=== PATIENT | female | born 1935 | race Caucasian/White ===

== ENCOUNTER 2017-04-16 05:52 | Outpatient (CLI) | payer MEDICARE, OTHER ==
[~2017-04-16] VITALS: Ht 152.4 cm; Wt 72.1 kg
[~2017-04-16 05:52] MED LIST: ASP81TEC PO; CEPH500C PO; D50KC PO; EZET10TA5 PO; FAMO40TA6 PO; FRS325T PO; FRSM20T PO; FURO40TA4 PO; HYDR-623 PO; HYDR1TAB66 PO; LISI40TA PO; LVT.1T PO; OMG1KC PO; PRAV80TA2 PO; ROPI0.5T2 PO; ROPI2TAB28 PO; SPRN25T GT; SRTR100T PO; [UNRECOGNIZED DRUG - OTHER] PO
[2017-04-16] MEDS ORDERED: FAMO40TA6 PO (12:01)
[2017-04-16] MEDS ORDERED: FURO40TA4 PO (12:01)
[2017-04-16] MEDS ORDERED: HYDR-3820 PO (12:01)
[2017-04-16] MEDS ORDERED: LISI40TA PO (12:01)
[2017-04-16] MEDS ORDERED: LEVO125T6 PO (12:01)
[2017-04-16] MEDS ORDERED: SERT100T8 PO (12:01)
[2017-04-16] MEDS ORDERED: ALLO100T PO (12:02)
[2017-04-16] MEDS ORDERED: AMLO5TAB2 PO (12:02)
[2017-04-16] MEDS ORDERED: ATOR40TA70 PO (12:02)
== END 2017-04-16 12:13 ==
LOC: PREOP 05:52
PROVIDERS: ATTEND Otolaryngology Otolaryngology/Facial Plastic Surgery
DX: Z01.818 Encounter for other preprocedural examination (principal); L98.9 Disorder of the skin and subcutaneous tissue, unspecified

== ENCOUNTER 2017-04-18 05:50 | Day surgery (SDC) | payer MEDICARE, OTHER ==
[~2017-04-18] VITALS: Ht 152.4 cm; Wt 72.1 kg
[~2017-04-18 05:50] MED LIST changes: +ALLO100T PO; +AMLO5TAB2 PO; +ATOR40TA70 PO; +HYDR-3820 PO; +LEVO125T6 PO; +SERT100T8 PO
--- NOTE | 2017-04-18 06:45 | Progress Note-Pre Operative ---
Pre-Operative Progress Note H&P Reviewed The H&P was reviewed, patient examined and no changes noted. Date Seen by Provider: Apr 18, 2017 Time Seen by Provider: 06:30 Date H&P Reviewed: Apr 18, 2017 Time H&P Reviewed: 06:30 Pre-Operative Diagnosis: Left Medial Cheek Lesion JIMBO RICH MD Apr 18, 2017 6:45 am
[2017-04-18 06:51] LABS: BASOPHILS % (AUTO) 0 % (0-10); EOSINOPHILS # (AUTO) 0.3 10^3/uL (0.0-0.3); EOSINOPHILS % (AUTO) 4 % (0-10); HEMATOCRIT 32 % (35-52); HEMOGLOBIN 10.7 G/DL (11.5-16.0); LYMPHOCYTES % (AUTO) 12 % (12-44); MEAN CORPUSCULAR HEMOGLOBIN 30 PG (25-34); MEAN CORPUSCULAR HGB CONC 34 G/DL (32-36); MEAN CORPUSCULAR VOLUME 89 FL (80-99); MEAN PLATELET VOLUME 10.3 FL (7.4-10.4); MONOCYTES # (AUTO) 0.6 X 10^3 (0.0-1.0); MONOCYTES % (AUTO) 7 % (0-12); NEUTROPHILS # (AUTO) 5.8 X 10^3 (1.8-7.8); NEUTROPHILS % (AUTO) 76 % (42-75); PLATELET COUNT 183 10^3/uL (130-400); RED BLOOD COUNT 3.58 10^6/uL (4.35-5.85); RED CELL DISTRIBUTION WIDTH 15.2 % (10.0-14.5); WHITE BLOOD COUNT 7.7 10^3/uL (4.3-11.0)
[2017-04-18 06:53] VITALS: BP 178/67
[2017-04-18] MEDS ORDERED: LACTATED RINGERS 1,000 ML IV PRN ×2 (06:55→07:02)
[2017-04-18 07:08] LABS: CALCIUM 9.3 MG/DL (8.5-10.1); CREATININE SERUM 1.09 MG/DL (0.60-1.30); POTASSIUM 3.8 MMOL/L (3.6-5.0)
[2017-04-18] MEDS ORDERED: LIDOCAINE/EPI 1%-1:200,000 (XYLOCAINE) 10 ML VIAL ONE (07:23)
[2017-04-18] MEDS ORDERED: fentaNYL INJECTION 100 MCG/2 ML AMP ONE (07:47)
[2017-04-18] MEDS ORDERED: proPOfol 200 MG/20 ML (DIPRIVAN) VIAL IV ONE (07:47)
[2017-04-18] MEDS ORDERED: DEXAMETHASONE 10 MG/ML (DECADRON) 1 ML VIAL ONE (07:47)
[2017-04-18] MEDS ORDERED: SEVOFLURANE (ULTANE) 15 ML INHAL SOLN ONE (07:47)
[2017-04-18] MEDS ORDERED: LIDOCAINE PF 2% 5 ML (XYLOCAINE) VIAL ONE (07:47)
[2017-04-18] MEDS ORDERED: ONDANSETRON 4 MG/2 ML (SDV) Z0FRAN ONE (07:47)
[2017-04-18] MEDS ORDERED: BSS 15 ML ONE (08:55)
[2017-04-18] MEDS ORDERED: NEO/POLY/BACI (NEOSPORIN) OPHTH OINT 3.5 GM ONE (09:00)
--- NOTE | 2017-04-18 09:22 | Progress Note-Post Operative ---
Post-Operative Progess Note Surgeon (s)/On Site Manager (s) Surgeon JIMBO RICH MD On Site Manager n/a Pre-Operative Diagnosis Left Medial Cheek Lesion Post-Operative Diagnosis same Post-Op Procedure Note Date of Procedure: Apr 18, 2017 Name of Procedure Performed: Excison of BAsal Cell Left Medial Cheek-Reconstruction with Bilateral Advancement Flaps Description & Findings Description and Findings: n/a Anesthesia Type lma Estimated Blood Loss minimal Packing none. Specimen(s) collected/removed Left cheek mass-nodular basal cell with close but clear margins on frozen JIMBO RICH MD Apr 18, 2017 9:22 am
[2017-04-18] MEDS ORDERED: ACETAMINOPHEN 325 MG TABLET/CAPLET (TYLENOL) PO PRN (09:30)
[2017-04-18] MEDS ORDERED: HYDROcodone/APAP 5 MG/325 MG (LORTAB) TAB PO PRN (09:30)
[2017-04-18 10:20] VITALS: BP 162/59
[2017-04-18 10:50] VITALS: BP 148/84
[2017-04-18 11:20] VITALS: BP 169/60
[2017-04-18 11:30] VITALS: BP 169/60
== END 2017-04-18 11:30 | disposition home or self-care (01) ==
LOC: SDC 05:50
PROVIDERS: ATTEND Otolaryngology Otolaryngology/Facial Plastic Surgery
DX: C44.319 Basal cell carcinoma of skin of other parts of face (principal); I10 Essential (primary) hypertension; G47.33 Obstructive sleep apnea (adult) (pediatric); M06.9 Rheumatoid arthritis, unspecified; M19.91 Primary osteoarthritis, unspecified site; F32.9 Major depressive disorder, single episode, unspecified; K21.9 Gastro-esophageal reflux disease without esophagitis; E03.9 Hypothyroidism, unspecified; Z79.899 Other long term (current) drug therapy; Z79.02 Long term (current) use of antithrombotics/antiplatelets; Z79.82 Long term (current) use of aspirin
CPT/HCPCS: 36415; 80048; 85025; 87081; 93005